=== PATIENT | female | born 1955 | race Caucasian/White ===

== ENCOUNTER 2022-01-04 11:37 | Emergency (ER) | payer OTHER ==
[2022-01-04 11:42] VITALS: BP 154/82; PULSE 72; RESP 18; TEMP 98.2; BMI 23.8
== END 2022-01-04 15:54 | disposition home or self-care (01) ==
LOC: JER 11:37
DX: T46.4X5A Adverse effect of angiotensin-converting-enzyme inhibitors, initial encounter (principal)
CPT/HCPCS: 99283-25